=== PATIENT | female | born 1995 | race Caucasian/White ===

== ENCOUNTER → 2022-04-12 | Outpatient (CLI) | payer OTHER ==
[2022-04-12 16:49] LABS: BLOOD UREA NITROGEN 8 MG/DL (7-18); CALCIUM LEVEL 9.3 MG/DL (8.5-10.1); CARBON DIOXIDE LEVEL 26 MEQ/L (21-32); CHLORIDE LEVEL 102 MEQ/L (98-107); CREATININE FOR GFR 0.64 MG/DL (0.55-1.30); GLOMERULAR FILTRATION RATE > 60.0 (>60); GLUCOSE, FASTING 87 MG/DL (70-100); HCG, SERUM QUANTITATIVE 1646 MIU/ML; SODIUM LEVEL 134 MEQ/L (136-145)
== END ==
LOC: M PLALAB 14:15
PROVIDERS: ATTEND Family Medicine
DX: Z33.1 Pregnant state, incidental (principal)

== ENCOUNTER → 2022-04-18 | Outpatient (REF) | payer OTHER, BC | LOC: M PLALAB 16:55 | PROVIDERS: ATTEND Nurse Practitioner Adult Health | DX: Z33.1 Pregnant state, incidental (principal) ==